=== PATIENT | female | born 1970 | race Caucasian/White ===

== ENCOUNTER 2022-09-17 11:00 | Inpatient (IN) | payer MEDICAID, SELFPAY ==
[2022-09-17] VITALS (27 sets, daily range): BP systolic 115–181; BP diastolic 65–123; PULSE 68–122; RESP 14–45; TEMP 35.8–36.4; O2SAT 88–100; BMI 20.8; BMI 20.7
--- NOTE | 2022-09-17 11:19 | ED.VIS.DYS ---
HPI History of Present Illness Chief Complaint: Shortness of Breath Detail of Chief Complaint: Shortness of breath and decreased level of consciousness Informant: family Limited: other (Decreased level of consciousness and respiratory distress) Onset/Context/Timing Onset: Today Context: sudden Timing: Continuous Quality: Positive for Wheezing Current Severity: Severe Maximum Severity: Severe Worsened by: - (Unable to determine) Relieved by: - (Unable to determine) Associated Symptoms cough Chest Pain: Positive for Sharp (Started after my first evaluation, primary survey) Narrative Narrative: Patient is a 51-year-old woman. She has a depressed level conscious. She is uncertain how old she is. She is grunting. She has JVD at 75+ degrees. She is noted to have a fistula on the left distal forearm. Patient is slumped over. She requires repeated verbal and light touch to open her eyes and attempt answer questions. History is very limited. PE Risk Factors: Negative for Cancer, OCP + Smoking + > 35, Prior DVT or PE, Recent immobilization, Recent surgery or Recent travel Recent Illness/Hospitalization: No PFSH PFSH Medical History (Updated 09/17/22 @ 12:[address] Eddie Pratt MD) CHF (congestive heart failure) COPD (chronic obstructive pulmonary disease) End stage renal disease Medical History unable to obtain unable to obtain Home Medications albuterol sulfate 90 mcg/actuation aerosol inhaler (Ventolin HFA) 2 puff inhalation Q4H PRN SOB 09/17/22 [History Last Taken Unknown] carvedilol 25 mg tablet 25 mg PO BID HTN 09/17/22 [History Last Taken 09/17/22] cholecalciferol (vitamin D3) 10 mcg (400 unit) tablet (Vitamin D3) 800 unit PO DAILY SUPPLEMENT 09/17/22 [History Last Taken 09/17/22] clonidine HCl 0.2 mg tablet 0.2 mg PO BID HTN 09/17/22 [History Last Taken 09/17/22] escitalopram oxalate 5 mg tablet 5 mg PO DAILY MOOD 09/17/22 [History Last Taken 09/17/22] furosemide 80 mg tablet 80 mg PO DAILY EDEMA 09/17/22 [History Last Taken 09/17/22] hydralazine 100 mg tablet 100 mg PO TID HTN 09/17/22 [History Last Taken 09/17/22] lisinopril 40 mg tablet 40 mg PO DAILY HTN 09/17/22 [History Last Taken 09/17/22] nifedipine 90 mg tablet,extended release 24 hr 90 mg PO DAILY ANGINA 09/17/22 [History Last Taken 09/17/22] prazosin 1 mg capsule 1 mg PO DAILY HTN 09/17/22 [History Last Taken 09/17/22] prednisone 10 mg tablet See Rx Instructions .Route .COMPLEX . 09/17/22 [History Last Taken Unknown] Allergy/AdvReac Type Severity Reaction Status Date / Time aspirin Allergy Rash Verified 09/17/22 11:15 Surgical History unable to obtain unable to obtain Social History (Updated 09/17/22 @ 11:[address] Eddie Pratt MD) household members: family Smoking Status: Current every day smoker tobacco type: cigarettes ROS ROS ED Review of Systems ROS Unobtainable: due to mental status Cardiovascular Cardiovascular: Reports chest pain Musculoskeletal Musculoskeletal: Reports back pain EXAM Physical Exam Const Vital Signs: 09/17/22 11:01 09/17/22 11:11 09/17/22 11:16 Temperature 97.6 F L Temperature Source Temporal Pulse Rate 122 H Respiratory Rate 32 H Respiratory Effort Short of Breath Labored Accessory Muscle Use Nasal Flaring Respiratory Depth Shallow Respiratory Pattern Tachypnea Blood Pressure 181/123 H Blood Pressure Mean 142 Pulse Ox 93 Oxygen Delivery Method Room Air Room Air Nasal Cannula Oxygen Flow Rate (L/min) 2 09/17/22 12:00 Temperature Temperature Source Pulse Rate 87 Respiratory Rate 33 H Respiratory Effort Respiratory Depth Respiratory Pattern Blood Pressure 151/76 H Blood Pressure Mean 101 Pulse Ox 99 Oxygen Delivery Method Nasal Cannula Oxygen Flow Rate (L/min) 2 Positive well nourished, well developed and unkempt Constitutional Narrative: Patient has depressed level conscious. She is slumped over. She is grunting. There is use of accessory muscles. Patient is not oriented. General Appearance ED: unkempt and well developed; Negative for pallor HEENT Reports moist mucous membranes HEENT Narrative: Ears are normal. Nares patent. Patient is drooling. There is no evidence of angioedema. atraumatic Eyes PERRL and EOMs intact bilaterally General Eye ED: Negative for pale conjunctiva or scleral icterus Neck no lymphadenopathy, supple and no meningeal signs Neck Narrative: Trachea is midline. Upper respiratory sounds are noted. Suspect this is due to patient's head position did improve once patient was repositioned. Resp No normal respiratory effort and No clear to auscultation bilaterally Auscultation: wheezes expiratory wheezes and throughout Cardio regular rhythm, S1 normal heart sound, S2 normal heart sound and no murmurs Rate: tachycardic GI non-tender, non-distended and no masses Back/Spine no CVA tenderness Extremity General Extremety ED: Yes edema General Extremity: edema Neuro No oriented x3 and CN's II-XII intact bilaterally [place] Coma Scale: document GCS findings To Voice Obeys Commands Confused 13 Sensorium / Orientation: Negative for alert Psych Negative for mental status grossly normal Appearance: unkempt Skin no wounds and skin turgor normal General Skin Exam: Negative for jaundice or pallor Lesions: no lesions Rashes: no rashes MDM MDM MDM Narrative Medical decision making narrative: History is very limited to what family is able to tell me since patient has altered mental status. Patient was recently admitted at [facility]. She was admitted on September 02, 2022 with discharge date of 10/03/2022. Per records reviewed from [facility] patient has history of end-stage renal disease on hemodialysis Tuesday, and Tuesday. She is a smoker and is a smoker of marijuana. There is presumption that she has COPD. There are no PFTs available for review. She has chronic heart failure with preserved ejection fraction. As well as a chronic thoracic aortic aneurysm dissection/dilation that is stable most recent CAT scan angiogram performed on August 24, 2022. She is on medicine for hypertension and has history of noncompliance. Recent coronary angiogram revealed mild coronary disease 30% lesion of the LAD. She was admitted 2 days prior to that admission for shortness of breath and pulmonary edema after missing scheduled hemodialysis. Family states she did go to hemodialysis yesterday. In light of patient's abrupt onset of JVD need to evaluate for fluid overload, congestive heart failure, ischemia, may represent atypical presentation for pneumothorax, pneumonia and specifically aspiration since patient is drooling. ABG was obtained because of decreased level consciousness and concern for COPD to evaluate for hypercapnia. ABG reveals no acid-base disturbance. PO2 was 64 on 2 L of oxygen. This correlates with the pulse ox. Since patient makes urine will treat with Lasix and nitro drip for preload reduction specially since she is complaining of chest pain as well. Will contact hospitalist for admission. Since patient's blood pressure has improved and patient has improved after discussion with hospitalist requested that I discontinue the nitro drip and patient will be admitted to PCU History & Record Review Discussion w/independent historian: Family Additional record(s) reviewed:: Prior inpatient record (Documented MDM and from [facility]), Prior labs and Other (Reviewed patient's problem list from outside facility and laboratory results.) Lab Data Attestation: I reviewed the patient's lab results. Lab results narrative: White count is elevated with mild shift. There is no bandemia. There is evidence of macrocytic anemia coags normal. Comprehensive metabolic panel is remarkable BUN of 53 and creatinine of 5.54. BNP is 2447. First troponin is normal at 41. Labs: Laboratory Results - last 24 hr 09/17/22 09/17/22 09/17/22 11:20 11:20 11:20 WBC 13.5 H RBC 2.70 L Hgb 8.9 L Hct 28.6 L MCV 105.9 H MCH 33.0 H MCHC 31.1 L RDW Std Deviation 63.4 H RDW Coeff of Keo 16.2 H Plt Count 192 MPV 11.4 Immature Gran % (Auto) 0.400 Neut % (Auto) 79.8 H Lymph % (Auto) 15.3 L [place] % (Auto) 4.0 Eos % (Auto) 0.3 Baso % (Auto) 0.2 Absolute Neuts (auto) 10.8 H Absolute Lymphs (auto) 2.06 Nucleated RBC % 0 PT 13.3 INR 1.0 APTT 20.6 L Sodium 137 Potassium 4.7 Chloride 97 L Carbon Dioxide 25.0 Anion Gap 15 BUN 53 H Creatinine 5.54 H Estim Creat Clear Calc 11.82 Est GFR (MDRD) Af Amer 10 L Est GFR (MDRD) Non-Af 9 L BUN/Creatinine Ratio 9.6 L Glucose 251 H Calcium 9.1 Total Bilirubin 0.50 AST 66 H ALT 51 Alkaline Phosphatase 129 H Troponin I High Sens 41 B-Natriuretic Peptide Total Protein 6.8 Albumin 3.2 Globulin 3.6 Albumin/Globulin Ratio 0.9 09/17/22 11:20 WBC RBC Hgb Hct MCV MCH MCHC RDW Std Deviation RDW Coeff of Keo Plt Count MPV Immature Gran % (Auto) Neut % (Auto) Lymph % (Auto) [place] % (Auto) Eos % (Auto) Baso % (Auto) Absolute Neuts (auto) Absolute Lymphs (auto) Nucleated RBC % PT INR APTT Sodium Potassium Chloride Carbon Dioxide Anion Gap BUN Creatinine Estim Creat Clear Calc Est GFR (MDRD) Af Amer Est GFR (MDRD) Non-Af BUN/Creatinine Ratio Glucose Calcium Total Bilirubin AST ALT Alkaline Phosphatase Troponin I High Sens B-Natriuretic Peptide 2447.1 H Total Protein Albumin Globulin Albumin/Globulin Ratio ABG Data ABG results: ABG 09/17/22 11:25 Specimen Type ART Sample Site R Brach pH 7.41 Bicarbonate Actual 26.4 H Total CO2 28 Base Excess 2 O2 Saturation 93 L ABG pCO2 41.3 ABG pO2 65 L O2 Delivery Device Cannula Liter Flow 2.0 Radiography Chest X-Ray - ED: 1 View and Read by ED Physician (Single view portable chest x-ray reveals evidence of congestive heart failure. There is prominence of the perihilar region most likely due to the stable thoracic aneurysm dissection which is well known with recent CTA on August 24, 2022.) Diagnostic Testing: Clinical Impression(s) from Imaging Studies Chest X-Ray 09/17/22 11:20 IMPRESSION: Findings suggestive CHF with prominence of the right inferior mediastinum and right parahilar region. Lymphadenopathy or mass lesion should be ruled out. A CT scan is recommended. Electronically Signed: Lazaro Rasmussen MD at 12:01 EST , Rhythm Strip Rhythm Strip: Sinus Tach Rate: 122 Ectopy: None EKG Initial EKG: Attestation: I personally reviewed and interpreted this EKG as follows: Interpretation: Sinus Rhythm (Rate is 97. There is artifact because of her respiratory distress. CO interval is 170 ms. Cures duration 108 ms. QT duration is very 78 ms. [place] is normal. There is evidence of left atrial enlargement. There is an RR prime in V1 and V2 and suggestive of an incomplete right bundle branch block) Treatment and Re-Evaluation :: Since patient's chest x-ray reveals heart failure and she makes urine we will treat with Lasix and nitroglycerin drip for preload reduction. Patient will require admission should she requires oxygen. Critical Care Time Critical Care Time: Yes Critical care time (excluding procedures): 30-74 minutes (33), Including time spent: (History, physical, documentation, review of prior records, interpretation laboratory results initiation of therapy), Discussing w/Patient &/or Family/Laundry Operator, Discussing w/Consultants and Arranging Admission or Transfer Discharge Plan Dx/Rx/DC Orders Clinical Impression: Acute respiratory failure with hypoxia, Pulmonary edema, Hypertension, End-stage renal disease on hemodialysis Disposition Disposition: Acute Care Hospital [facility]
--- NOTE | 2022-09-17 11:20 | RAD_ITS ---
STUDY: X-RAY CHEST REASON FOR EXAM: Female, 51 years old. Respiratory distress, grunting, wheezing, hypoxia TECHNIQUE: Single AP portable view of the chest. COMPARISON: None. FINDINGS: EKG electrodes are seen. There is evidence of increased interstitial markings in the lungs suggestive of a possible CHF. Blunting of both costophrenic angles. There is mild cardiac enlargement. This prominence of the right hilar and right mediastinal soft tissue prominence. Correlation with a CT scan is recommended. Normal visualized pulmonary arteries. Normal visualized aortic arch and descending thoracic aorta. There are diffuse degenerative changes of the visualized thoracic spine. Normal visualized ribs, clavicles, and shoulders. There is no demonstrated abnormality of the visualized soft tissue structures of the upper abdomen. RAD/Chest 1 View (Portable) IMPRESSION: Findings suggestive CHF with prominence of the right inferior mediastinum and right parahilar region. Lymphadenopathy or mass lesion should be ruled out. A CT scan is recommended. Electronically Signed: Lazaro Rasmussen MD at 12:01 EST ,
[2022-09-17 11:30] LABS: Base Excess 2 mmol/L (-2 to +2); Bicarbonate 26.4 mmol/L (22-26); Blood Gas Specimen Type ART; O2 Delivery Device Cannula; PO2 65 mmHG (75-100); SITE R Brach; SO2 93 % (95-99); Total Carbon Dioxide 28 mmol/L; pCO2 41.3 mmHg (35-45); pH 7.41 (7.35-7.45)
[2022-09-17 11:33] LABS: Absolute Lymphocyte Count 2.06 X10^3/uL (0.83-4.51); Absolute Neutrophil Count 10.8 X10^3/uL (2.0-7.7); Basophil# 0.03 X10^3/uL; Basophil% 0.2 % (0-1); Eosinophil# 0.04 X10^3/uL; Eosinophils% 0.3 % (0-5); Hematocrit 28.6 % (37-47); Hemoglobin 8.9 g/dL (12.0-15.0); Lymphocyte # 2.06 X10^3/ul (0.83-4.51); Lymphocyte % 15.3 % (19-41); Mean Corp Hgb Conc 31.1 g/dL (32-36); Mean Corpuscular Volume 105.9 fL (81-99); Mean Platelet Vol. 11.4 fl (6.2-12.0); Monocyte# 0.54 X10^3/uL; NRBC Flagged by Analyzer 0 % (0-5); Neutrophil # 10.77 X10^3/uL (2.7-7.7); Neutrophil % 79.8 % (47-70); Platelet Count 192 K/mm3 (150-450); RBC Distribution Width CV 16.2 % (11.6-14.6); RBC Distribution Width SD 63.4 fl (35.1-43.9); White Blood Count 13.5 K/mm3 (4.4-11.0)
[2022-09-17 11:39] LABS: Prothrombin Time (Protime)PT. 13.3 SECONDS (11.7-14.9)
[2022-09-17 11:45] LABS: Partial Thromboplast Time 20.6 Seconds (24.1-36.2)
[2022-09-17 11:55] LABS: ALB/GLOB Ratio 0.9 RATIO (0.9-2.4); AST(SGOT) 66 U/L (15-37); Alanine Aminotransfer ALT/SGPT 51 U/L (13-56); Albumin, Serum 3.2 g/dL (3.2-5.0); Alkaline Phosphatase 129 U/L (45-117); Anion Gap 15 (5-15); BUN 53 mg/dL (7-18); BUN/Creat Ratio 9.6 RATIO (10-20); Calcium,Total 9.1 mg/dL (8.5-10.1); Chloride 97 mmol/L (98-107); Creatinine, Serum 5.54 mg/dL (0.55-1.02); EST Glomerular Filtration Rate 9 mL/min (>60); Est Glom Filt Rate - Afr Amer 10 mL/min (>60); Estimated Creatinine Clearance 11.82 ml/min; Globulin 3.6 g/dL (2.2-4.2); Glucose 251 mg/dL (74-106); Potassium 4.7 mmol/L (3.5-5.1); Protein, Total 6.8 g/dL (6.4-8.2); Sodium Level 137 mmol/L (136-145); Troponin-I HS 41 pg/mL (3.0-54.0)
--- NOTE | 2022-09-17 13:12 | HP.PCM.HOS_ITS ---
[facility] - General General Date of Admission: 09/17/22 Date of Service: 09/17/22 Chief Complaint: Shortness of breath HPI Narrative PAUL BUSTOS, is a 51 F with past medical history significant for COPD, end-stage renal disease on hemodialysis, history of chronic congestive heart failure with preserved ejection fraction as well as thoracic aortic aneurysm/dissection which appears to be chronic presented with shortness of breath. Patient symptoms started on the morning of her admission. She denied missing any of her dialysis sessions and her last dialysis was a day prior to coming in. An assessment in the emergency department was consistent with acute congestive heart failure. Admitted to monitored bed for further management [facility] Medical History (Updated 09/17/22 @ 13:[address] Jonathan Dickerson MD) CHF (congestive heart failure) COPD (chronic obstructive pulmonary disease) End stage renal disease Medical History unable to obtain Home Medications albuterol sulfate 90 mcg/actuation aerosol inhaler (Ventolin HFA) 2 puff inhalation Q4H PRN SOB 09/17/22 [History Last Taken Unknown] carvedilol 25 mg tablet 25 mg PO BID HTN 09/17/22 [History Last Taken 09/17/22] cholecalciferol (vitamin D3) 10 mcg (400 unit) tablet (Vitamin D3) 800 unit PO DAILY SUPPLEMENT 09/17/22 [History Last Taken 09/17/22] clonidine HCl 0.2 mg tablet 0.2 mg PO BID HTN 09/17/22 [History Last Taken 09/17/22] escitalopram oxalate 5 mg tablet 5 mg PO DAILY MOOD 09/17/22 [History Last Taken 09/17/22] furosemide 80 mg tablet 80 mg PO DAILY EDEMA 09/17/22 [History Last Taken 09/17/22] hydralazine 100 mg tablet 100 mg PO TID HTN 09/17/22 [History Last Taken 09/17/22] lisinopril 40 mg tablet 40 mg PO DAILY HTN 09/17/22 [History Last Taken 09/17/22] nifedipine 90 mg tablet,extended release 24 hr 90 mg PO DAILY ANGINA 09/17/22 [History Last Taken 09/17/22] prazosin 1 mg capsule 1 mg PO DAILY HTN 09/17/22 [History Last Taken 09/17/22] prednisone 10 mg tablet See Rx Instructions .Route .COMPLEX . 09/17/22 [History Last Taken Unknown] Allergy/AdvReac Type Severity Reaction Status Date / Time aspirin Allergy Rash Verified 09/17/22 11:15 Family History Mother Heart disease Surgical History unable to obtain Social History household members: family Smoking Status: Current every day smoker tobacco type: cigarettes ROS ROS Narrative GENERAL: denies fever, chills, night sweats, HEENT: denies headache, sinus congestion, RESPIRATORY: shortness of breath, dyspnea on exertion CARDIAC: denies chest pain, palpitations, orthopnea, PND GASTROINTESTINAL: denies abdominal pain, nausea, vomiting, melena, GENITOURINARY: denies dysuria, urgency, frequency, heamaturia EXTREMITY: denies swelling MUSCULOSKELETAL: denies current joint pain or tenderness NEUROLOGIC: denies focal numbness, weakness, tingling HEMATOLOGIC: denies easy bruising and/or hemorrhage INTEGUMENT: denies rashes PSYCHIATRIC: denies suicidal or homicidal ideation Vital Signs Vital Signs Vital Signs: 09/17/22 11:01 09/17/22 11:11 09/17/22 11:16 Temperature 97.6 F L Temperature Source Temporal Pulse Rate 122 H Respiratory Rate 32 H Respiratory Effort Short of Breath Labored Accessory Muscle Use Nasal Flaring Respiratory Depth Shallow Respiratory Pattern Tachypnea Blood Pressure 181/123 H Blood Pressure Mean 142 Pulse Ox 93 Oxygen Delivery Method Room Air Room Air Nasal Cannula Oxygen Flow Rate (L/min) 2 09/17/22 12:00 Temperature Temperature Source Pulse Rate 87 Respiratory Rate 33 H Respiratory Effort Respiratory Depth Respiratory Pattern Blood Pressure 151/76 H Blood Pressure Mean 101 Pulse Ox 99 Oxygen Delivery Method Nasal Cannula Oxygen Flow Rate (L/min) 2 Weight Weight: 62.3 kg Body Mass Index (BMI) 20.8 Physical Exam Narrative GENERAL: Dyspneic at rest HEENT: Atraumatic; normocephalic EYES; Anicteric, Normal Conjunctiva NECK; supple, normal thyroid, RESPIRATORY: Diminished to auscultation CARDIOVASCULAR: Regular S1 S2, GI: soft, normoactive bowel sounds, : No Renal angle tenderness; EXTREMITIES: No edema, no clubbing, MUSCULOSKELETAL: no muscle wasting NEURO: Awake; no lateralizing signs. SKIN: No Rash PSYCH; Flat affect Results Lab / Micro Data Result Diagrams: 09/17/22 11:20 09/17/22 11:20 Labs: Laboratory Results - last 24 hr 09/17/22 11:20: WBC 13.5 H, RBC 2.70 L, Hgb 8.9 L, Hct 28.6 L, MCV 105.9 H, MCH 33.0 H, MCHC 31.1 L, RDW Std Deviation 63.4 H, RDW Coeff of Keo 16.2 H, Plt Count 192, MPV 11.4, Immature Gran % (Auto) 0.400, Neut % (Auto) 79.8 H, Lymph % (Auto) 15.3 L, [place] % (Auto) 4.0, Eos % (Auto) 0.3, Baso % (Auto) 0.2, Absolute Neuts (auto) 10.8 H, Absolute Lymphs (auto) 2.06, Nucleated RBC % 0 09/17/22 11:20: PT 13.3, INR 1.0, APTT 20.6 L 09/17/22 11:20: Sodium 137, Potassium 4.7, Chloride 97 L, Carbon Dioxide 25.0, Anion Gap 15, BUN 53 H, Creatinine 5.54 H, Estim Creat Clear Calc 11.82, Est GFR (MDRD) Af Amer 10 L, Est GFR (MDRD) Non-Af 9 L, BUN/Creatinine Ratio 9.6 L, Glucose 251 H, Calcium 9.1, Total Bilirubin 0.50, AST 66 H, ALT 51, Alkaline Phosphatase 129 H, Troponin I High Sens 41, Total Protein 6.8, Albumin 3.2, Globulin 3.6, Albumin/Globulin Ratio 0.9 09/17/22 11:20: B-Natriuretic Peptide 2447.1 H ABG Data ABG results: ABG 09/17/22 11:25 Specimen Type ART Sample Site R Brach pH 7.41 Bicarbonate Actual 26.4 H Total CO2 28 Base Excess 2 O2 Saturation 93 L ABG pCO2 41.3 ABG pO2 65 L O2 Delivery Device Cannula Liter Flow 2.0 Rhythm Strip Rhythm Strip: Sinus Tach Rate: 122 Ectopy: None Radiology Impression Chest X-Ray 09/17/22 11:20 IMPRESSION: Findings suggestive CHF with prominence of the right inferior mediastinum and right parahilar region. Lymphadenopathy or mass lesion should be ruled out. A CT scan is recommended. Electronically Signed: Lazaro Rasmussen MD at 12:01 EST , Assessment & Plan Assessment/Plan (1) CHF (congestive heart failure): PLAN: Plan Patient is a 51-year-old lady presented with shortness of breath 1. Acute on chronic congestive heart failure with preserved ejection fraction ? Patient has been admitted to a monitored bed managed with strict input and output, daily weight, fluid restriction as well as IV diuretics with furosemide. Patient was started on nitroglycerin drip from the emergency department plan is to wean off. Was also placed on supplemental oxygen titrated to keep saturation greater than 90. As part of her management ordered serial cardiac enzymes 2D echo and TSH 2. End-stage renal disease ? On hemodialysis on Tuesdays and Saturdays. Ordered BMP for daily monitoring consult placed to nephrology for dialysis orders 3. Essential hypertension ? Did continue patient home medications 4. Known history of brain aneurysm ? Apparently stable being monitored with serial CAT scans 5. Chronic thoracic aorta aneurysm/dissection ? Apparently stable per recent CAT scan performed at [facility] on August 2022 6. COPD ? Without acute exacerbation aerosol treatments as needed 7. Tobacco dependence - Counseled on cessation, offered nicotine patch for tobacco cravings 8. DVT prophylaxis ? SC heparin Time spent in the patient's overall evaluation,decision-making process, review of diagnostic data, adjustment of management, discussion with other providers, nursing nursing and ancillary staff involved in patient's care documentation, 77 Minutes Advance planning; did discuss with the patient and family regarding advanced directives as well as CODE STATUS. Did explain the various scenarios involved ( FULL CODE, DNR CCA, DNR CCA with no intubation, and DNR CC and what each meant) patient elected to remain full code with CPR and intubation if needed. Order was placed. Time spent on discussion 18 minutes. Charges/Coding Visit Charges Inpatient E&M: 91209 Init Hosp L3 Procedures Hospitalists Procedures: 96891 Advncd Care Plan 30 Min
[2022-09-17] MEDS: Furosemide 100 MG/10 ML Vial 60 MG IV (13:19)
[2022-09-17] MEDS: Nitroglycerin Infusion 250 ML 6 MG CONT INF (13:20)
--- NOTE | 2022-09-17 13:25 | NURSING ---
UPON ADMINISTERING MEDICATIONS, THIS RN NOTED THAT PTS BREATHING HAS BECOME MORE LABORED AND PT WAS GASPING AND GUPPY BREATHING STRUGGLING TO GET AIR. THIS RN NOTIFIES DR. DOMINGUEZ OF PTS INCREASE IN WORK OF BREATHING. DR. DOMINGUEZ TO ORDER BIPAP. RESPIRATORY NOTIFIED OF NEED FOR BIPAP.
--- NOTE | 2022-09-17 13:40 | CT_ITS ---
STUDY: CTA CHEST REASON FOR EXAM: Female, 51 years old. Chest pain note aortic aneurysm and known thoracic dissection RADIATION DOSAGE (If Supplied By Facility): CTDIvol = ( 9.67 ) mGy, DLP = ( 265.99 ) mGycm TECHNIQUE: The examination was performed with the intravenous administration of IV 100mL [id number]. Post-processing of the angiographic images was performed, with multiplanar reformation and 3D reconstruction. Individualized dose optimization techniques were used for this CT. COMPARISON: Comparison is made with prior chest radiograph done earlier in the day. FINDINGS: Normal enhancement of the main pulmonary artery and right and left pulmonary arteries. Normal enhancement of the bilateral peripheral pulmonary arteries. There is no demonstrated pulmonary embolism. There is aneurysmal dilatation of the ascending aorta. The transverse diameter of the ascending aorta measures 44.2 mm''s. There is no demonstrated aortic dissection. Mild degree of atherosclerotic plaque formation of the aortic arch. Focal bulging of the mid and posterior aspect of the aortic arch. The patient is known to have a prior dissection. No dissection is seen at this time. There are calcifications of the coronary arteries. Normal mediastinum. Normal hilar regions. Normal visualized trachea and bronchi. The lungs are well expanded. Small right pleural effusion with increased markings at the lung bases and increase interstitial markings suggesting a mild degree of CHF. Normal chest wall structures. There are degenerative changes of thoracic spine. Normal visualized upper abdomen. CT/CTA Chest W/WO Contrast IMPRESSION: No evidence of a mass lesion. Dilatation of the ascending thoracic aorta. Right pleural effusion with increased markings at the bases and mild degree of CHF. Electronically Signed: Lazaro Rasmussen MD at 14:16 EST ,
--- NOTE | 2022-09-17 13:45 | ED.RN ---
PT NOTED TO BE BREATHING WITH EASE AFTER BIPAP WAS APPLIED. PT SEEMS MORE RELAXED AND COMFORTABLE.
--- NOTE | 2022-09-17 15:57 | ECHOD_ITS ---
Reason For Study: CHF Procedure This was a 2D Doppler, Color Flow transthoracic echocardiogram. No Pedoff due to severe pain s/p dialysis. Exam performed portable in ICU/CCU. Left Ventricle Normal LV size. Moderate concentric left ventricular hypertrophy. The left ventricular ejection fraction is 60 %. Stage 3 diastolic dysfunction. Right Ventricle Normal right ventricle. Atria The left atrium is severely enlarged. Normal right atrium. Mitral Valve Mild diffuse mitral valve thickening. Moderate focal mitral valve calcification of the posterior leaflet. Moderately severe (3+) mitral valve insufficiency. Tricuspid Valve Mild tricuspid valve insufficiency. Pulmonary artery systolic pressure is 61 mmHg. Severe pulmonary hypertension. Aortic Valve Trisinus/trileaflet aortic valve. Mild diffuse aortic valve thickening. Mild aortic stenosis. Moderate (2+) aortic valve insufficiency. Pulmonic Valve The pulmonic valve is not well visualized. Mild (1+) pulmonic valve insufficiency. Great Vessels Moderately dilated aortic root. Pericardium/Pleural No pericardial effusion. MMode/2D Measurements & Calculations LVIDd: 5.5 cm IVSd: 1.8 cm LVOT diam: 2.1 cm LVIDs: 3.0 cm LVPWd: 1.9 cm LVOT area: 3.3 cm2 RVDd: 4.0 cm FS: 46.4 % Ao root diam: 4.1 cm LAV(MOD-bp): 124.5 ml LVAd ap4: 34.1 cm2 LAV(MOD-bp) Indexed: 71.5 ml/m2 LVLd ap4: 8.7 cm LAV(MOD-sp2): 136.2 ml EDV(MOD-sp4): 114.1 ml LAV(MOD-sp4): 103.9 ml EDV(sp4-el): 113.8 ml LVAs ap4: 16.0 cm2 LVLs ap4: 6.9 cm ESV(MOD-sp4): 31.2 ml ESV(sp4-el): 31.4 ml EF(MOD-sp4): 72.6 % EF(sp4-el): 72.4 % SV(MOD-sp4): 82.8 ml SV(sp4-el): 82.3 ml LA A4 area: 29.6 cm2 RA A4 area: 12.8 cm2 Time Measurements MV dec time: 0.25 sec Doppler Measurements & Calculations MV E max oneil: 181.4 cm/sec Lat Peak E' Oneil: 10.5 cm/sec Med Peak E' Oneil: 5.9 cm/sec MV A max oneil: 77.1 cm/sec E/E' lat: 17.4 E/E' med: 30.9 MV E/A: 2.4 MV V2 max: 220.0 cm/sec MV P1/2t max oneil: 230.7 cm/sec Ao V2 max: 323.1 cm/sec MV max P.4 mmHg MV P1/2t: 83.5 msec Ao max P.9 mmHg MV V2 mean: 113.9 cm/sec Ao V2 mean: 242.9 cm/sec MV mean P.2 mmHg MV dec slope: 808.8 cm/sec2 Ao mean P.5 mmHg MV V2 VTI: 58.4 cm MVA(P1/2t): 2.6 cm2 Ao V2 VTI: 64.9 cm AV (velocity ratio): 0.49 MVA(VTI): 1.8 cm2 MIKE(I,D): 1.6 cm2 MIKE(V,D): 1.6 cm2 AI max oneil: 525.2 cm/sec LV V1 max: 153.1 cm/sec SV(LVOT): 106.3 ml AI max P.4 mmHg LV V1 max P.4 mmHg LV V1 mean P.6 mmHg AI dec slope: 665.6 cm/sec2 LV V1 mean: 113.3 cm/sec AI P1/2t: 231.1 msec LV V1 VTI: 31.8 cm PA V2 max: 119.2 cm/sec PI end-d oneil: 153.1 cm/sec TR max oneil: 364.2 cm/sec TR max P.1 mmHg ECHO/Echo Complete Interpretation Summary Normal LV size. Moderate concentric left ventricular hypertrophy. The left ventricular ejection fraction is 60 %. Stage 3 diastolic dysfunction. The left atrium is severely enlarged. Moderately severe (3+) mitral valve insufficiency. Mild tricuspid valve insufficiency. Severe pulmonary hypertension. Mild aortic stenosis. Moderate (2+) aortic valve insufficiency. Mild (1+) pulmonic valve insufficiency. Moderately dilated aortic root. Consider SARA for further valuation of MR/A if clinically indicated. Ordering Physician: Jonathan Dickerson Performed By: Yenni Lora RDCS, RVT
[2022-09-17] MEDS: Carvedilol 25 MG Tablet PO ×2 (16:15→22:33)
[2022-09-17] MEDS: hydrALAZINE 50 MG Tablet 100 MG PO ×2 (16:34→22:33)
[2022-09-17] MEDS: cloNIDine HCl 0.2 MG Tablet PO ×2 (16:35→22:33)
[2022-09-17 16:53] LABS: Troponin-I HS 126 pg/mL (3.0-54.0)
[2022-09-17] MEDS: Furosemide 100 MG/10 ML Vial 80 MG IV ×2 (18:17→23:55)
[2022-09-17] MEDS: 0.9% Saline Lock 10 ML Syringe IV ×3 (18:17→23:54)
[2022-09-17 19:05] LABS: Troponin-I HS 133 pg/mL (3.0-54.0)
[2022-09-17] MEDS: LORazepam 2 MG/ML Syringe 0.5 MG IV (19:34)
[2022-09-17] MEDS: Albuterol 2.5 MG/3 ML VIAL.NEB. INHALATION (20:00)
[2022-09-17 22:31] LABS: Troponin-I HS 122 pg/mL (3.0-54.0)
[2022-09-18] VITALS (28 sets, daily range): BP systolic 96–134; BP diastolic 50–95; PULSE 65–85; RESP 14–30; TEMP 36.1–36.9; O2SAT 92–100; BMI 20.2
--- NOTE | 2022-09-18 00:42 | NURSING ---
Report given to renae Orellana who is taking over pts care at this time.
[2022-09-18 03:35] LABS: Absolute Lymphocyte Count 3.16 X10^3/uL (0.83-4.51); Absolute Neutrophil Count 6.8 X10^3/uL (2.0-7.7); Basophil# 0.03 X10^3/uL; Basophil% 0.3 % (0-1); Eosinophil# 0.21 X10^3/uL; Eosinophils% 1.9 % (0-5); Hematocrit 24.3 % (37-47); Hemoglobin 7.4 g/dL (12.0-15.0); Lymphocyte # 3.16 X10^3/ul (0.83-4.51); Lymphocyte % 28.9 % (19-41); Mean Corp Hgb Conc 30.5 g/dL (32-36); Mean Corpuscular Volume 105.2 fL (81-99); Mean Platelet Vol. 11.2 fl (6.2-12.0); Monocyte# 0.68 X10^3/uL; Monocyte% 6.2 % (0-10); NRBC Flagged by Analyzer 0 % (0-5); Neutrophil # 6.78 X10^3/uL (2.7-7.7); Neutrophil % 62.2 % (47-70); Platelet Count 155 K/mm3 (150-450); RBC Distribution Width CV 16.4 % (11.6-14.6); RBC Distribution Width SD 63.2 fl (35.1-43.9); Red Blood Count 2.31 M/mm3 (4.2-5.4); White Blood Count 10.9 K/mm3 (4.4-11.0)
[2022-09-18 03:59] LABS: Anion Gap 11 (5-15); BUN 69 mg/dL (7-18); BUN/Creat Ratio 10.5 RATIO (10-20); Calcium,Total 8.5 mg/dL (8.5-10.1); Chloride 98 mmol/L (98-107); Creatinine, Serum 6.57 mg/dL (0.55-1.02); EST Glomerular Filtration Rate 7 mL/min (>60); Est Glom Filt Rate - Afr Amer 9 mL/min (>60); Estimated Creatinine Clearance 9.94 ml/min; Glucose 99 mg/dL (74-106); Potassium 4.7 mmol/L (3.5-5.1); Sodium Level 137 mmol/L (136-145)
--- NOTE | 2022-09-18 04:54 | NURSING ---
Pt c/o severe anxiety, it feels like I'm about to have a panic attack. Tachypneic in the upper 30s. Reassurance given, and pt placed back on bipap.
[2022-09-18] MEDS: Furosemide 100 MG/10 ML Vial 80 MG IV ×4 (05:08→23:31)
[2022-09-18] MEDS: 0.9% Saline Lock 10 ML Syringe IV ×5 (05:08→23:31)
[2022-09-18] MEDS: hydrALAZINE 50 MG Tablet 100 MG PO ×3 (05:50→20:51)
--- NOTE | 2022-09-18 06:55 | PCM.PN.BLA ---
Progress Note Nephrology consult acknowledged. Patient has ESRD and is on TTS dialysis schedule. The patient will be seen later today. I will arrange for dialysis today. Herman Tapia MD
--- NOTE | 2022-09-18 07:21 | PN.HOSP_ITS ---
Reason for Visit Reason for Visit: Diagnoses Heart failure, unspecified (09/17/22) Subjective Subjective Patient is a 51-year-old lady with multiple comorbidities admitted with progressive shortness of breath and assessment of acute hypoxia secondary to CHF made admitted to the intensive care unit and managed per protocol Objective Data Objective Data Vital Signs: Vital Signs Temp Pulse Resp BP Pulse Ox O2 Del Method O2 Flow Rate 97.6 F L 72 17 103/71 99 Bi-pap 3 09/18/22 04:00 09/18/22 07:00 09/18/22 07:00 09/18/22 07:00 09/18/22 07:00 09/18/22 07:00 09/17/22 13:32 FiO2 30 09/18/22 07:00 Oxygen Flow Rate (L/min) 3 Oxygen Delivery Method Bi-pap Weight: 60.6 kg Body Mass Index (BMI) 20.2 Intake & Output: Intake and Output for Last 24 Hours 09/16/22 09/17/22 09/18/22 23:59 23:59 23:59 Intake Total 304.20 / 352.20 428.00 / 428.00 Output Total 125 / 125 Balance 179.20 / 227.20 428.00 / 428.00 Lab / Micro Data Result Diagrams: 09/18/22 03:30 09/18/22 03:30 Labs: Laboratory Results - last 24 hr 09/17/22 11:20: WBC 13.5 H, RBC 2.70 L, Hgb 8.9 L, Hct 28.6 L, MCV 105.9 H, MCH 33.0 H, MCHC 31.1 L, RDW Std Deviation 63.4 H, RDW Coeff of Keo 16.2 H, Plt Count 192, MPV 11.4, Immature Gran % (Auto) 0.400, Neut % (Auto) 79.8 H, Lymph % (Auto) 15.3 L, [place] % (Auto) 4.0, Eos % (Auto) 0.3, Baso % (Auto) 0.2, Absolute Neuts (auto) 10.8 H, Absolute Lymphs (auto) 2.06, Nucleated RBC % 0 09/17/22 11:20: PT 13.3, INR 1.0, APTT 20.6 L 09/17/22 11:20: Sodium 137, Potassium 4.7, Chloride 97 L, Carbon Dioxide 25.0, Anion Gap 15, BUN 53 H, Creatinine 5.54 H, Estim Creat Clear Calc 11.82, Est GFR (MDRD) Af Amer 10 L, Est GFR (MDRD) Non-Af 9 L, BUN/Creatinine Ratio 9.6 L, Glucose 251 H, Calcium 9.1, Total Bilirubin 0.50, AST 66 H, ALT 51, Alkaline Phosphatase 129 H, Troponin I High Sens 41, Total Protein 6.8, Albumin 3.2, Glob ulin 3.6, Albumin/Globulin Ratio 0.9 09/17/22 11:20: B-Natriuretic Peptide 2447.1 H 09/17/22 16:28: Troponin I High Sens 126 H* 09/17/22 18:20: Troponin I High Sens 133 H* 09/17/22 22:05: Troponin I High Sens 122 H* 09/18/22 03:30: WBC 10.9, RBC 2.31 L, Hgb 7.4 L, Hct 24.3 L, MCV 105.2 H, MCH 32.0, MCHC 30.5 L, RDW Std Deviation 63.2 H, RDW Coeff of Keo 16.4 H, Plt Count 155, MPV 11.2, Immature Gran % (Auto) 0.500, Neut % (Auto) 62.2, Lymph % (Auto) 28.9, [place] % (Auto) 6.2, Eos % (Auto) 1.9, Baso % (Auto) 0.3, Absolute Neuts ( auto) 6.8, Absolute Lymphs (auto) 3.16, Nucleated RBC % 0 09/18/22 03:30: Sodium 137, Potassium 4.7, Chloride 98, Carbon Dioxide 28.0, Anion Gap 11, BUN 69 H, Creatinine 6.57 H, Estim Creat Clear Calc 9.94, Est GFR (MDRD) Af Amer 9 L, Est GFR (MDRD) Non-Af 7 L, BUN/Creatinine Ratio 10.5, Glucose 99, Calcium 8.5, Magnesium 2.0, TSH 4.30 H ABG Data ABG results: ABG 09/17/22 11:25 Specimen Type ART Sample Site R Brach pH 7.41 Bicarbonate Actual 26.4 H Total CO2 28 Base Excess 2 O2 Saturation 93 L ABG pCO2 41.3 ABG pO2 65 L O2 Delivery Device Cannula Liter Flow 2.0 Radiography Diagnostic Testing: Radiology Impression Chest X-Ray 09/17/22 11:20 IMPRESSION: Findings suggestive CHF with prominence of the right inferior mediastinum and right parahilar region. Lymphadenopathy or mass lesion should be ruled out. A CT scan is recommended. Electronically Signed: Lazaro Rasmussen MD at 12:01 EST , Chest CTA 09/17/22 13:40 IMPRESSION: No evidence of a mass lesion. Dilatation of the ascending thoracic aorta. Right pleural effusion with increased markings at the bases and mild degree of CHF. Electronically Signed: Lazaro Rasmussen MD at 14:16 EST , Rhythm Strip Rhythm Strip: Sinus Tach Rate: 122 Ectopy: None Physical Exam Narrative GENERAL: Dyspneic at rest HEENT: Atraumatic; normocephalic EYES; Anicteric, Normal Conjunctiva NECK; supple, normal thyroid, RESPIRATORY: Diminished to auscultation CARDIOVASCULAR: Regular S1 S2, GI: soft, normoactive bowel sounds, : No Renal angle tenderness; EXTREMITIES: No edema, no clubbing, MUSCULOSKELETAL: no muscle wasting NEURO: Awake; no lateralizing signs. SKIN: No Rash PSYCH; Flat affect Assessment & Plan Assessment/Plan (1) CHF (congestive heart failure): PLAN: Plan Patient is a 51-year-old lady presented with shortness of breath 1. Acute on chronic congestive heart failure with preserved ejection fraction ? Patient has been admitted to a monitored bed managed with strict input and output, daily weight, fluid restriction as well as IV diuretics with furosemide. Patient was started on nitroglycerin drip from the emergency department plan is to wean off. Was also placed on supplemental oxygen titrated to keep saturation greater than 90. As part of her management ordered serial cardiac enzymes 2D echo and TSH ? Patient was managed with diuretics as well as through dialysis 2. End-stage renal disease ? On hemodialysis on Tuesdays and Saturdays. Ordered BMP for daily monitoring consult placed to nephrology for dialysis orders 3. Essential hypertension ? Did continue patient home medications 4. Known history of brain aneurysm ? Apparently stable being monitored with serial CAT scans 5. Chronic thoracic aorta aneurysm/dissection ? Apparently stable per recent CAT scan performed at [facility] on August 2022 6. COPD ? Without acute exacerbation aerosol treatments as needed 7. Tobacco dependence - Counseled on cessation, offered nicotine patch for tobacco cravings 8. DVT prophylaxis ? SC heparin 9. Anemia - Secondary to chronic disorder monitoring H&H and transfuse if patient becomes symptomatic or hemoglobin falls below 7 10. Elevated troponin ? Secondary to demand ischemia from patient CHF Time spent in the patient's overall evaluation,decision-making process, review of diagnostic data, adjustment of management, discussion with other providers, nursing nursing and ancillary staff involved in patient's care documentation, 57 Minutes Charges/Coding Visit Charges Inpatient E&M: 44130 Subs Hosp L3
[2022-09-18] MEDS: Acetaminophen 325 MG Tablet 650 MG PO (07:50)
[2022-09-18 08:08] LABS: Phosphorus 6.5 mg/dL (2.5-4.9)
[2022-09-18] MEDS: Ondansetron 4 MG/2 ML Vial IV (09:04)
[2022-09-18] MEDS: Doxazosin 1 MG Tablet PO (13:13)
[2022-09-18] MEDS: Enoxaparin 30 MG/0.3 ML Syringe SC (13:13)
[2022-09-18] MEDS: Escitalopram Oxalate 10 MG Tablet 5 MG PO (13:13)
[2022-09-18] MEDS: cloNIDine HCl 0.2 MG Tablet PO ×2 (13:14→20:51)
[2022-09-18] MEDS: Carvedilol 25 MG Tablet PO ×2 (13:14→20:51)
[2022-09-18] MEDS: Famotidine 20 MG Tablet PO (13:15)
--- NOTE | 2022-09-18 15:14 | CASEMGMT ---
Addendum entered and electronically signed by Nolvia Parker RN 09/18/22 15:21: Pt attend hemodialysis tx's at the [facility] ([facility] T, H, S with a 1115 chair time. Igor Parker RN CM Original Note: PREETI SANDY DC Planning Assessment: Face to Face with patient for initial transition planning/care coordination assessment.? PREETI SANDY introduced self and role at [facility], pt voices understanding.?Pt sitting up in chair, alert, oriented x4 and agreeable to participating in assessment with S.O. at chairside Care providers, pharmacy,?and demographics verified. ? 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 Pt states she has been recently referred to a adhesive primer and a entry engineer but she has not had visits with them yet and does not know their names. Preferred Pharmacy: [facility] Insurance: [facility] CP Prescription Benefit:?yes Living Will/HPOA: pt states she is working on these prior to admission. LNOK: son; S.O. [place] Living Arrangements: Pt lives with her son in a single story home with two steps to enter. Pt states she is independent with all ADLs including self care and household tasks. Transportation: Pt drives and has family that can assist with needed. DME: pulse oximeter, scale SNF/HHC: pt denies any previous providers. Plan: Pt plans to return to her son's home and denies any DC needs or concerns at this time. Pt states she does have a scale to monitor her weight but she does not limit her fluid intake. Pt states she does not want to live like this being in the hospital and plans to be more cognizant of her fluid intake after discharge. Will continue to monitor and assist with DC planning needs as identified. Igor Parker RN CM
--- NOTE | 2022-09-18 15:27 | CPS ---
patient on Bipap
[2022-09-18] MEDS: Albuterol 2.5 MG/3 ML VIAL.NEB. INHALATION (16:00)
[2022-09-18] MEDS: NIFEdipine 90 MG Tablet PO (17:30)
--- NOTE | 2022-09-19 00:34 | CPS ---
Patient refuses PAP at this time
[2022-09-19] MEDS: Acetaminophen 325 MG Tablet 650 MG PO (03:04)
[2022-09-19 03:10] VITALS: BP 116/73; PULSE 78; RESP 18; TEMP 37; O2SAT 92
[2022-09-19 05:14] VITALS: BMI 19.8
[2022-09-19 05:21] VITALS: BP 131/67; PULSE 68; RESP 16; TEMP 36.9; O2SAT 92
[2022-09-19 05:23] VITALS: BP 131/67; PULSE 68
[2022-09-19] MEDS: Furosemide 100 MG/10 ML Vial 80 MG IV (05:23)
[2022-09-19] MEDS: hydrALAZINE 50 MG Tablet 100 MG PO (05:23)
[2022-09-19] MEDS: 0.9% Saline Lock 10 ML Syringe IV (05:24)
[2022-09-19 07:00] VITALS: O2SAT 92
[2022-09-19 07:12] LABS: Absolute Lymphocyte Count 2.34 X10^3/uL (0.83-4.51); Absolute Neutrophil Count 5.2 X10^3/uL (2.0-7.7); Basophil# 0.06 X10^3/uL; Basophil% 0.7 % (0-1); Eosinophil# 0.21 X10^3/uL; Eosinophils% 2.4 % (0-5); Hematocrit 23.9 % (37-47); Hemoglobin 7.2 g/dL (12.0-15.0); Lymphocyte # 2.34 X10^3/ul (0.83-4.51); Lymphocyte % 27.3 % (19-41); Mean Corp Hgb Conc 30.1 g/dL (32-36); Mean Corpuscular Volume 106.2 fL (81-99); Mean Platelet Vol. 11.4 fl (6.2-12.0); Monocyte# 0.73 X10^3/uL; Monocyte% 8.5 % (0-10); NRBC Flagged by Analyzer 0 % (0-5); Neutrophil % 60.6 % (47-70); Platelet Count 149 K/mm3 (150-450); RBC Distribution Width CV 16.3 % (11.6-14.6); RBC Distribution Width SD 63.8 fl (35.1-43.9); Red Blood Count 2.25 M/mm3 (4.2-5.4); White Blood Count 8.6 K/mm3 (4.4-11.0)
--- NOTE | 2022-09-19 07:48 | PCM.PN.HOSP ---
Reason for Visit Reason for Visit: Diagnoses Heart failure, unspecified (09/17/22) Subjective Subjective Patient breathing significantly improved plan is for patient to be discharged home Objective Data Objective Data Vital Signs: Vital Signs Temp Pulse Resp BP Pulse Ox O2 Del Method O2 Flow Rate 98.4 F 68 16 131/67 H 92 Room Air 1 09/19/22 05:21 09/19/22 05:23 09/19/22 05:21 09/19/22 05:23 09/19/22 07:00 09/19/22 07:00 09/18/22 10:00 FiO2 25 09/18/22 07:05 Oxygen Flow Rate (L/min) 1 Oxygen Delivery Method Room Air Weight: 59.5 kg Body Mass Index (BMI) 19.8 Intake & Output: Intake and Output for Last 24 Hours 09/17/22 09/18/22 09/20/22 23:59 23:59 00:59 Intake Total 304.20 / 352.20 1058.00 / 1058.00 107.8 / 107.8 Output Total 125 / 125 3000 / 3000 Balance 179.20 / 227.20 -1942.00 / -1942.00 107.8 / 107.8 Lab / Micro Data Result Diagrams: 09/19/22 05:15 09/19/22 05:15 Labs: Laboratory Results - last 24 hr 09/18/22 03:30: Phosphorus 6.5 H 09/19/22 05:15: WBC 8.6, RBC 2.25 L, Hgb 7.2 L, Hct 23.9 L, MCV 106.2 H, MCH 32.0, MCHC 30.1 L, RDW Std Deviation 63.8 H, RDW Coeff of Keo 16.3 H, Plt Count 149 L, MPV 11.4, Immature Gran % (Auto) 0.500, Neut % (Auto) 60.6, Lymph % (Auto) 27.3, [place] % (Auto) 8.5, Eos % (Auto) 2.4, Baso % (Auto) 0.7, Absolute Neuts (auto) 5.2, Absolute Lymphs (auto) 2.34, Nucleated RBC % 0 Radiography Diagnostic Testing: Radiology Impression Echocardiogram 09/17/22 15:57 Interpretation Summary Normal LV size. Moderate concentric left ventricular hypertrophy. The left ventricular ejection fraction is 60 %. Stage 3 diastolic dysfunction. The left atrium is severely enlarged. Moderately severe (3+) mitral valve insufficiency. Mild tricuspid valve insufficiency. Severe pulmonary hypertension. Mild aortic stenosis. Moderate (2+) aortic valve insufficiency. Mild (1+) pulmonic valve insufficiency. Moderately dilated aortic root. Consider SARA for further valuation of MR/A if clinically indicated. Ordering Physician: Jonathan Dickerson Performed By: Yenni Lora, ZUNILDA, RVT Rhythm Strip Rhythm Strip: Sinus Tach Rate: 122 Ectopy: None Physical Exam Narrative GENERAL: Dyspneic at rest HEENT: Atraumatic; normocephalic EYES; Anicteric, Normal Conjunctiva NECK; supple, normal thyroid, RESPIRATORY: Diminished to auscultation CARDIOVASCULAR: Regular S1 S2, GI: soft, normoactive bowel sounds, : No Renal angle tenderness; EXTREMITIES: No edema, no clubbing, MUSCULOSKELETAL: no muscle wasting NEURO: Awake; no lateralizing signs. SKIN: No Rash PSYCH; Flat affect Assessment & Plan Assessment/Plan (1) CHF (congestive heart failure): PLAN: Plan Patient is a 51-year-old lady presented with shortness of breath 1. Acute on chronic congestive heart failure with preserved ejection fraction ? Patient has been admitted to a monitored bed managed with strict input and output, daily weight, fluid restriction as well as IV diuretics with furosemide. Patient was started on nitroglycerin drip from the emergency department plan is to wean off. Was also placed on supplemental oxygen titrated to keep saturation greater than 90. As part of her management ordered serial cardiac enzymes 2D echo and TSH ? Patient was managed with diuretics as well as through dialysis 2. End-stage renal disease ? On hemodialysis on Tuesdays and Saturdays. Ordered BMP for daily monitoring consult placed to nephrology for dialysis orders 3. Essential hypertension ? Did continue patient home medications 4. Known history of brain aneurysm ? Apparently stable being monitored with serial CAT scans 5. Chronic thoracic aorta aneurysm/dissection ? Apparently stable per recent CAT scan performed at [facility] on August 2022 6. COPD ? Without acute exacerbation aerosol treatments as needed 7. Tobacco dependence - Counseled on cessation, offered nicotine patch for tobacco cravings 8. DVT prophylaxis ? SC heparin 9. Anemia - Secondary to chronic disorder monitoring H&H and transfuse if patient becomes symptomatic or hemoglobin falls below 7 10. Elevated troponin ? Secondary to demand ischemia from patient CHF Time spent in the patient's overall evaluation,decision-making process, review of diagnostic data, adjustment of management, discussion with other providers, nursing nursing and ancillary staff involved in patient's care documentation, 37 Minutes Charges/Coding Visit Charges Inpatient E&M: 13766 Subs Hosp L2
[2022-09-19 07:52] LABS: Anion Gap 11 (5-15); BUN 42 mg/dL (7-18); BUN/Creat Ratio 8.2 RATIO (10-20); Calcium,Total 8.7 mg/dL (8.5-10.1); Chloride 99 mmol/L (98-107); Creatinine, Serum 5.14 mg/dL (0.55-1.02); EST Glomerular Filtration Rate 9 mL/min (>60); Est Glom Filt Rate - Afr Amer 11 mL/min (>60); Estimated Creatinine Clearance 12.16 ml/min; Glucose 100 mg/dL (74-106); Potassium 3.9 mmol/L (3.5-5.1); Sodium Level 137 mmol/L (136-145)
[2022-09-19 08:46] LABS: Ferritin 1361 ng/mL (8-252); Iron 139 ug/dL (50-170); Iron Binding Capacity,Total 255 ug/dL (250-450); PERCENT IRON SATURATION 54.5 % (15.0-55.0)
--- NOTE | 2022-09-19 09:49 | PCM.DC.SUM ---
Providers Date of Admission: 09/17/22 Date of Discharge: 09/19/22 Primary Care Physician: Alanna Primary Care Phys Consultations 09/17/22 15:57 Consult: Nephrology Routine Consulting Provider: Melanie Marks Reason for Consult: CKD EMERGENT Consult: No MD Notified: Yes Date Notified: 09/17/22 Time Notified: 13:08 Method of Notification: Verbal Reason For Visit: CHF Diagnosis Discharge Diagnosis (1) CHF (congestive heart failure): Status: Acute Code(s): I50.9 - Heart failure, unspecified Plan Patient is a 51-year-old lady presented with shortness of breath 1. Acute on chronic congestive heart failure with preserved ejection fraction ? Patient has been admitted to a monitored bed managed with strict input and output, daily weight, fluid restriction as well as IV diuretics with furosemide. Patient was started on nitroglycerin drip from the emergency department plan is to wean off. Was also placed on supplemental oxygen titrated to keep saturation greater than 90. As part of her management ordered serial cardiac enzymes 2D echo and TSH ? Patient was managed with diuretics as well as through dialysis 2. End-stage renal disease ? On hemodialysis on Tuesdays and Saturdays. Ordered BMP for daily monitoring consult placed to nephrology for dialysis orders 3. Essential hypertension ? Did continue patient home medications 4. Known history of brain aneurysm ? Apparently stable being monitored with serial CAT scans 5. Chronic thoracic aorta aneurysm/dissection ? Apparently stable per recent CAT scan performed at [facility] on August 2022 6. COPD ? Without acute exacerbation aerosol treatments as needed 7. Tobacco dependence - Counseled on cessation, offered nicotine patch for tobacco cravings 8. DVT prophylaxis ? SC heparin 9. Anemia - Secondary to chronic disorder monitoring H&H and transfuse if patient becomes symptomatic or hemoglobin falls below 7 10. Elevated troponin ? Secondary to demand ischemia from patient CHF Time spent in the patient's overall evaluation,decision-making process, review of diagnostic data, adjustment of management, discussion with other providers, nursing nursing and ancillary staff involved in patient's care documentation, 37 Minutes Medications at Discharge Home Medications albuterol sulfate 90 mcg/actuation aerosol inhaler (Ventolin HFA) 2 puff inhalation Q4H PRN SOB 09/17/22 carvedilol 25 mg tablet 25 mg PO BID HTN 09/17/22 cholecalciferol (vitamin D3) 10 mcg (400 unit) tablet (Vitamin D3) 800 unit PO DAILY SUPPLEMENT 09/17/22 clonidine HCl 0.2 mg tablet 0.2 mg PO BID HTN 09/17/22 escitalopram oxalate 5 mg tablet 5 mg PO DAILY MOOD 09/17/22 furosemide 80 mg tablet 80 mg PO DAILY EDEMA 09/17/22 hydralazine 100 mg tablet 100 mg PO TID HTN 09/17/22 lisinopril 40 mg tablet 40 mg PO DAILY HTN 09/17/22 nifedipine 90 mg tablet,extended release 24 hr 90 mg PO DAILY ANGINA 09/17/22 prazosin 1 mg capsule 1 mg PO DAILY HTN 09/17/22 prednisone 10 mg tablet See Rx Instructions .Route .COMPLEX . 09/17/22 Hospital Course Summary of Care Provided Minutes Spent on Discharge: 37 Physical Exam Narrative GENERAL: Dyspneic at rest HEENT: Atraumatic; normocephalic EYES; Anicteric, Normal Conjunctiva NECK; supple, normal thyroid, RESPIRATORY: Diminished to auscultation CARDIOVASCULAR: Regular S1 S2, GI: soft, normoactive bowel sounds, : No Renal angle tenderness; EXTREMITIES: No edema, no clubbing, MUSCULOSKELETAL: no muscle wasting NEURO: Awake; no lateralizing signs. SKIN: No Rash PSYCH; Flat affect Weight / BMI Weight Weight: 59.5 kg Body Mass Index (BMI) 19.8 ABG / Lab / Microbiology Data Result Diagrams: 09/19/22 05:15 09/19/22 05:15 Laboratory: Laboratory Results - last 24 hr 09/19/22 05:15: WBC 8.6, RBC 2.25 L, Hgb 7.2 L, Hct 23.9 L, MCV 106.2 H, MCH 32.0, MCHC 30.1 L, RDW Std Deviation 63.8 H, RDW Coeff of Keo 16.3 H, Plt Count 149 L, MPV 11.4, Immature Gran % (Auto) 0.500, Neut % (Auto) 60.6, Lymph % (Auto) 27.3, [place] % (Auto) 8.5, Eos % (Auto) 2.4, Baso % (Auto) 0.7, Absolute Neuts (auto) 5.2, Absolute Lymphs (auto) 2.34, Nucleated RBC % 0 09/19/22 05:15: Sodium 137, Potassium 3.9, Chloride 99, Carbon Dioxide 27.0, Anion Gap 11, BUN 42 H, Creatinine 5.14 H, Estim Creat Clear Calc 12.16, Est GFR (MDRD) Af Amer 11 L, Est GFR (MDRD) Non-Af 9 L, BUN/Creatinine Ratio 8.2 L, Glucose 100, Calcium 8.7 09/19/22 08:12: Iron 139, TIBC 255, Iron Saturation 54.5, Ferritin 1361 H Radiography Diagnostic Testing: Radiology Impression Echocardiogram 09/17/22 15:57 Interpretation Summary Normal LV size. Moderate concentric left ventricular hypertrophy. The left ventricular ejection fraction is 60 %. Stage 3 diastolic dysfunction. The left atrium is severely enlarged. Moderately severe (3+) mitral valve insufficiency. Mild tricuspid valve insufficiency. Severe pulmonary hypertension. Mild aortic stenosis. Moderate (2+) aortic valve insufficiency. Mild (1+) pulmonic valve insufficiency. Moderately dilated aortic root. Consider SARA for further valuation of MR/A if clinically indicated. Ordering Physician: Jonathan Dickerson Performed By: Yenni Lora RDCS, RVT D/C Instructions Discharge Diet: 8 Cup Fluid Restriction, 2000 mg Sodium Diet and Renal Diet Discharge Activity: Return to Normal Activity Call your doctor if you observe: Fever of 101 or Higher, Shortness of breath, Fainting spells and Chest pain Meaningful Use Info Meaningful Use Diagnoses (Choose all that apply): CHF CHF ARCADIO/ARB ordered at discharge?: Yes Documented LVEF (%): 60 Discharge Plan Admission Admit Date/Time: 09/17/22 13:02 Attending Provider: Jonathan Dickerson Primary Care Provider: Care Physician,No Primary Consulting Providers: Melanie Marks Discharge Orders/Prescriptions Prescriptions: Continued carvedilol 25 mg tablet 25 mg PO BID prednisone 10 mg tablet See Rx Instructions .ROUTE .COMPLEX Label Comments: TAKE 4 TABLETS DAILY FOR 3 DAYS THEN 3 TABLETS DAILY FOR 3 DAYS THEN 2 TABLETS DAILY FOR 3 DAYS THEN 1 TABLET DAILY FOR 3 DAYS THEN STOP Rx Instructions: TAKE 4 TABLETS DAILY FOR 3 DAYS THEN 3 TABLETS DAILY FOR 3 DAYS THEN 2 TABLETS DAILY FOR 3 DAYS THEN 1 TABLET DAILY FOR 3 DAYS THEN STOP. FILLED 09/05/22 prazosin 1 mg capsule 1 mg PO DAILY clonidine HCl 0.2 mg tablet 0.2 mg PO BID furosemide 80 mg tablet 80 mg PO DAILY nifedipine 90 mg tablet extended release 24hr 90 mg PO DAILY Label Comments: TAKE 1 TABLET BY MOUTH EVERY MORNING hydralazine 100 mg tablet 100 mg PO TID Label Comments: TAKE 1 TABLET BY MOUTH THREE TIMES DAILY albuterol sulfate [Ventolin HFA] 90 mcg/actuation HFA aerosol inhaler 2 puff INHALATION Q4H PRN (Reason: SOB) Label Comments: INHALE 2 PUFFS BY MOUTH EVERY 4 HOURS NEEDED FOR WHEEZING OR SHORTNESS OF BREATH lisinopril 40 mg tablet 40 mg PO DAILY cholecalciferol (vitamin D3) [Vitamin D3] 10 mcg (400 unit) tablet 800 unit PO DAILY Label Comments: TAKE 2 TABLETS BY MOUTH DAILY DO NOT START BEFORE 07/24/2022 escitalopram oxalate 5 mg tablet 5 mg PO DAILY Referrals / Follow Up: Care Physician,No Primary [Primary Care Provider] - NOT,DEFINED [Non-Staff] - Disposition Disposition (needs filled in before D/C Order can be placed): Home, Self Care Charges/Coding Visit Charges Inpatient E&M: 32023 Disch Hosp >30min
[2022-09-19 10:19] VITALS: BP 108/58; PULSE 75; RESP 17; TEMP 36.8; O2SAT 94
[2022-09-19] MEDS: cloNIDine HCl 0.2 MG Tablet PO (10:24)
[2022-09-19] MEDS: Famotidine 20 MG Tablet PO (10:24)
[2022-09-19] MEDS: Doxazosin 1 MG Tablet PO (10:24)
[2022-09-19] MEDS: NIFEdipine 90 MG Tablet PO (10:24)
[2022-09-19] MEDS: Carvedilol 25 MG Tablet PO (10:24)
[2022-09-19] MEDS: Escitalopram Oxalate 10 MG Tablet 5 MG PO (10:24)
[2022-09-19] MEDS: FLU VACC QS2022-23(6MOS UP)/PF 60 MCG/0.5 ML SYRINGE IM (10:26)
[2022-09-20 09:21] LABS: Vitamin B12 321 pg/mL (211-911)
== END 2022-09-19 11:26 | disposition home or self-care (01) | DRG 194 ==
LOC: ED 12:59 → ICU 18:56 → PCU 09-18 13:46
PROVIDERS: Admitting Provider Internal Medicine; Emergency Provider Emergency Medicine; Visit Provider Internal Medicine
DX: I13.2 Hypertensive heart and chronic kidney disease with heart failure and with stage 5 chronic kidney disease, or end stage renal disease (principal); J96.01 Acute respiratory failure with hypoxia; I50.33 Acute on chronic diastolic (congestive) heart failure; I24.8 Other forms of acute ischemic heart disease; Z99.2 Dependence on renal dialysis; J44.9 Chronic obstructive pulmonary disease, unspecified; N18.6 End stage renal disease; I71.20 Thoracic aortic aneurysm, without rupture, unspecified; F17.210 Nicotine dependence, cigarettes, uncomplicated; Z66 Do not resuscitate
CPT/HCPCS: 36415; 36600; 71045; 71275; 80048; 80053; 82607; 82728; 82803; 83540; 83550; 83735; 83880; 84100; 84443; 84484; 85025; 85610; 85730; 90937; 93005; 93306; 94002; 94003; 94640; 94668; 99252; 99284; Q9957; Q9967; 90686; A4216; G0257; G0463; J1940; J2405